=== PATIENT | female | born 1945 | race Caucasian/White ===

== ENCOUNTER → 2017-06-24 | Outpatient (CLI) | payer MEDICARE ==
--- NOTE | 2017-06-24 09:59 | XR ---
EXAMINATION TYPE: XR chest 2V DATE OF EXAM: 06/24/2017 COMPARISON: 07/10/2016 HISTORY: 72-year-old female preoperative evaluation TECHNIQUE: Frontal and lateral views FINDINGS: The cardiomediastinal silhouette, aorta, and pulmonary vasculature are within normal limits. Mild int erstitial prominence has a chronic appearance. Otherwise, lungs And pleural spaces are clear. Bridgin g anterior endplate spondylosis suggestive of DISH. IMPRESSION: Chronic-appearing changes without acute cardiopulmonary process.
== END | disposition home or self-care (01) ==
LOC: RADXRYALE 09:08
PROVIDERS: ATTEND Obstetrics & Gynecology Gynecologic Oncology
DX: C54.1 Malignant neoplasm of endometrium (principal); R91.8 Other nonspecific abnormal finding of lung field
CPT/HCPCS: 71020

== ENCOUNTER → 2019-07-17 | Outpatient (CLI) | payer MEDICARE ==
--- NOTE | 2019-07-17 12:21 | XR ---
EXAMINATION TYPE: XR ankle complete RT DATE OF EXAM: 07/17/2019 COMPARISON: None HISTORY: Pain medially TECHNIQUE: Three-view right ankle FINDINGS: Large plantar and Achilles tendon calcaneal heel spurs are present. Ankle mortise is intact. No acute fractures are evident. Soft tissues appear normal. IMPRESSION: 1. Large plantar calcaneal heel spurs. 2. No acute osseous abnormality.
== END | disposition home or self-care (01) ==
LOC: RADXRYALE 11:13
PROVIDERS: ATTEND Internal Medicine
DX: M77.31 Calcaneal spur, right foot (principal)

== ENCOUNTER 2022-07-30 14:45 | Inpatient (IN) | payer MEDICARE ==
[2022-07-30 16:34] LABS: Basophils % (A) 0 %; Eosinophils # (A) 0.1 k/uL (0-0.7); Eosinophils % (A) 1 %; HCT 38.3 % (34.0-46.0); HGB 13.3 gm/dL (11.4-16.0); Lymphocytes # (A) 0.9 k/uL (1.0-4.8); Lymphocytes % (A) 8 %; MCH 31.5 pg (25.0-35.0); MCHC 34.7 g/dL (31.0-37.0); MCV 90.6 fL (80.0-100.0); Mean Platelet Volume 7.9; Monocytes # (A) 0.6 k/uL (0-1.0); Monocytes % (A) 6 %; Neutrophils # (A) 8.3 k/uL (1.3-7.7); Neutrophils % (A) 82 %; Platelet Count 220 k/uL (150-450); RBC 4.22 m/uL (3.80-5.40); RDW 13.6 % (11.5-15.5); WBC 10.2 k/uL (3.8-10.6)
[2022-07-30 16:45] LABS: Calcium 7.8 mg/dL (8.4-10.2); Total Bilirubin 1.6 mg/dL (0.2-1.3)
[2022-07-30 16:46] LABS: Potassium 5.4 mmol/L (3.5-5.1); Total Protein 6.6 g/dL (6.3-8.2)
[2022-07-30 16:47] LABS: Magnesium 1.9 mg/dL (1.6-2.3)
--- NOTE | 2022-07-30 19:27 | ED ---
General Adult HPI - General Chief complaint: Weakness Stated complaint: Weakness Time Seen by Provider: 07/30/22 14:45 Source: patient, EMS, RN notes reviewed, old records reviewed Mode of arrival: EMS Limitations: no limitations - History of Present Illness Initial comments: This is a 77-year-old female presents emergency Department complaining of right ankle fracture. Patient states she was at [facility] yesterday and was diagnosed with a bimalleolar fracture and then she went home and was unable to get around the apartment and unable take care of self. Patient states family was at a try to help with that was too much burden on them and they were unable to get her up and moved around safely. I spoke with Dr. Suzie Larsen wanted the patient admitted admitted and put to rehab. Patient has no new complaints today. - Related Data Home Medications Medication Instructions Recorded Confirmed Aspirin [Adult Low Dose Aspirin EC] 81 mg PO DAILY 06/15/16 07/30/22 [place]-3 Fatty Acids/Fish Oil [Fish 1 tab PO DAILY 06/15/16 07/30/22 Oil 1,000 mg Softgel] Omeprazole [PriLOSEC] 20 mg PO DAILY 06/15/16 07/30/22 Simvastatin [Zocor] 40 mg PO DAILY 06/15/16 07/30/22 atenoloL [Tenormin] 50 mg PO DAILY 06/15/16 07/30/22 metFORMIN HCL [Glucophage] 1,000 mg PO BID 06/15/16 07/30/22 Alendronate Sodium [Fosamax] 70 mg PO TU 07/30/22 07/30/22 Pioglitazone [Actos] 15 mg PO DAILY 07/30/22 07/30/22 traMADol HCL 50 mg PO Q6H PRN 07/30/22 07/30/22 Allergies Allergy/AdvReac Type Severity Reaction Status Date / Time No Known Allergies Allergy Verified 07/30/22 15:23 Review of Systems ROS Statement: Those systems with pertinent positive or pertinent negative responses have been documented in the HPI. ROS Other: All systems not noted in ROS Statement are negative. General Exam - General Exam Comments Initial Comments: GENERAL: Patient is well-developed and well-nourished. Patient is nontoxic and well-hy drated and is in no acute distress. ENT: Neck is soft and supple. No significant lymphadenopathy is noted. Oropharynx is clear. Moist mucous membranes. EYES: The sclera were anicteric and conjunctiva were pink and moist. Extraocular movements were intact and pupils were equal round and reactive to light. Eyelids were unremarkable. PULMONARY: Unlabored respirations. Good breath sounds bilaterally. No audible rales rhonchi or wheezing was noted. CARDIOVASCULAR: There is a regular rate and rhythm without any murmurs gallops or rubs. ABDOMEN: Soft and nontender with normal bowel sounds. SKIN: Skin is clear with no lesions or rashes and otherwise unremarkable. NEUROLOGIC: Patient is alert and oriented x3. Cranial nerves II through XII are grossly intact. Motor and sensory are also intact. Normal speech, volume and content. Symmetrical smile. MUSCULOSKELETAL: Right ankle is casted toes have good sensation and good cap refill LYMPHATICS: No significant lymphadenopathy is noted PSYCHIATRIC: Normal psychiatric evaluation. Limitations: no limitations Course Vital Signs 07/30/22 07/30/22 14:55 18:29 Pulse Rate 68 71 Respiratory 18 16 Rate Blood Pressure 136/73 138/62 O2 Sat by Pulse 96 97 Oximetry Medical Decision Making - Medical Decision Making Was pt. sent in by a medical professional or institution? @ -Dr. Larsen sent the patient in Did you speak to anyone other than the patient for history? @ -I spoke with the and the daughter to get the full history patient was somewhat confused about the history Did you review nursing and triage notes? @ -I agree with the triage notes and nursing notes Were old charts reviewed? @ -I had old hospital records sent over from [facility] Differential Diagnosis? @ -None EKG interpreted by me (3pts min.)? @ -As above X-rays interpreted by me (1pt min.)? @ -I reviewed x-ray results sent from [facility] CT interpreted by me (1pt min.)? @ -None U/S interpreted by me (1pt. min.)? @ -None What testing was considered but not performed? (CT, X-rays, U/S, labs)? Why? @ -None What meds were considered but not given? Why? @ -None Did you discuss the management of the patient with other professionals? @ -I spoke with [facility] hospitalist Dr. Bland and he agreed to admit the patient Did you reconcile home meds? @ -No Was smoking cessation discussed for >3mins.? @ -No Was critical care preformed (if so, how long)? @ -No Were there social determinants of health that impacted care today? How? (Homelessness, low income, unemployed, alcoholism, drug addiction, transportation, low edu. Level, literacy, decrease access to med. care, custodial, rehab)? @ -No Was there de-escalation of care discussed even if they declined? (Discuss DNR or withdrawal of care, Hospice)? @ -No What co-morbidities impacted this encounter? (DM, HTN, Smoking, COPD, CAD, Cancer, CVA, Hep., AIDS, mental health diagnosis, sleep apnea, morbid obesity)? @ -No Was patient admitted / discharged? @ -Patient will be admitted for bimalleolar fracture with goal of rehabilitation. family states they cannot take care of her at home because there is no way she can get around really help get her up even though there are 2 other people living with her they attempted that all day today were on a successful getting her around a small home Undiagnosed new problem with uncertain prognosis? @ -None Drug Therapy requiring intensive monitoring for toxicity (Heparin, Nitro, Insulin, Cardizem)? @ -None Were any procedures done? @ -Known Diagnosis/symptom? @ -Bimalleolar fracture unable to get around Acute, or Chronic, or Acute on Chronic? @ -Acute Uncomplicated (without systemic symptoms) or Complicated (systemic symptoms)? @ -Uncomplicated Side effects of treatment? @ -None Exacerbation, Progression, or Severe Exacerbation] @ -None Poses a threat to life or bodily function? @ -No - Lab Data Result diagrams: 07/30/22 16:22 07/30/22 16:22 Lab Results 07/30/22 07/30/22 Range/Units 16:22 16:22 WBC 10.2 (3.8-10.6) k/uL RBC 4.22 (3.80-5.40) m/uL Hgb 13.3 (11.4-16.0) gm/dL Hct 38.3 (34.0-46.0) % MCV 90.6 (80.0-100.0) fL MCH 31.5 (25.0-35.0) pg MCHC 34.7 (31.0-37.0) g/dL RDW 13.6 (11.5-15.5) % Plt Count 220 (150-450) k/uL MPV 7.9 Neutrophils % 82 % Lymphocytes % 8 % Monocytes % 6 % Eosinophils % 1 % Basophils % 0 % Neutrophils # 8.3 H (1.3-7.7) k/uL Lymphocytes # 0.9 L (1.0-4.8) k/uL Monocytes # 0.6 (0-1.0) k/uL Eosinophils # 0.1 (0-0.7) k/uL Basophils # 0.0 (0-0.2) k/uL Sodium 136 L (137-145) mmol/L Potassium 5.4 H (3.5-5.1) mmol/L Chloride 103 (98-107) mmol/L Carbon Dioxide 24 (22-30) mmol/L Anion Gap 9 mmol/L BUN 43 H (7-17) mg/dL Creatinine 1.79 H (0.52-1.04) mg/dL Est GFR (CKD-EPI)AfAm 32 (>60 ml/min/1.73 sqM) Est GFR (CKD-EPI)NonAf 27 (>60 ml/min/1.73 sqM) Glucose 159 H (74-99) mg/dL Calcium 7.8 L (8.4-10.2) mg/dL Magnesium 1.9 (1.6-2.3) mg/dL Total Bilirubin 1.6 H (0.2-1.3) mg/dL AST 125 H (14-36) U/L ALT 47 H (4-34) U/L Alkaline Phosphatase 64 (38-126) U/L Total Protein 6.6 (6.3-8.2) g/dL Albumin 4.0 (3.5-5.0) g/dL Disposition Clinical Impression: Bimalleolar ankle fracture, Encounter for rehabilitation Disposition: ADMITTED IP TO THIS HOSP Is patient prescribed a controlled substance at d/c from ED?: No Referrals: Juliana Larsen MD [Primary Care Provider] - 1-2 days Time of Disposition: 19:31
[2022-07-30] MEDS ORDERED: SODIUM CHLORIDE 0.9% 1,000 ML IV ONE (19:31)
[2022-07-31 07:21] LABS: Glucose,Whole Blood 161 mg/dL (70-110)
[2022-07-31 11:21] LABS: Glucose,Whole Blood 167 mg/dL (70-110)
[2022-07-31] MEDS ORDERED: traMADol 50 MG TAB PO PRN (11:23)
[2022-07-31] MEDS ORDERED: CALCIUM CARBONATE 500 MG CHEWABLE PO PRN (11:25)
[2022-07-31] MEDS ORDERED: NON FORMULARY DRUG (Omega-3 Fatty Acids/Fish Oil [Fish Oil 1,000 Mg Softgel] 1 EACH Capsul PO SCH (11:30)
[2022-07-31] MEDS ORDERED: NON FORMULARY DRUG (Alendronate Sodium [Fosamax] 70 MG Tablet) PO SCH (11:30)
--- NOTE | 2022-07-31 11:32 | P.CNOR ---
History of Present Illness - HPI Consult date: 07/31/22 History of present illness: This is a 77-year-old female with a past medical history significant for diabetes mellitus, GERD, hyperlipidemia, hypertension and osteoarthritis. Patient is admitted for placement due to a right ankle fracture. Orthopedics is consulted for management of right ankle fracture. Patient states that she does not know how she injured her right ankle. Patient states that the injury happened a few days ago. Patient states that she was treated in the emergency room on 07/30/2022, and she does not think the ankle had to be reduced. Patient is currently in a splint. Patient denies any fever/chills, numbness, weakness, tingling, abdominal pain, shortness of breath or chest pain. Review of Systems On exam the right lower extremity has a splint that is clean, dry and intact. Patient is able to wiggle the toes of the right foot. Capillary refill is normal at less than 2 seconds. Sensation intact. Neurovascular status and circulatory status are intact. Past Medical History Past Medical History: Diabetes Mellitus, GERD/Reflux, Hyperlipidemia, Hypertension, Osteoarthritis (OA) History of Any Multi-Drug Resistant Organisms: None Reported Past Surgical History: Cholecystectomy, Heart Catheterization, Orthopedic Surgery Additional Past Surgical History / Comment(s): L knee arthroscopy Past Anesthesia/Blood Transfusion Reactions: Postoperative Nausea & Vomiting (PONV) Past Psychological History: No Psychological Hx Reported Smoking Status: Never smoker Past Drug Use History: None Reported - Past Family History Mother Family Medical History: Myocardial Infarction ([place]) Medications and Allergies Home Medications Medication Instructions Recorded Confirmed Type Aspirin [Adult Low Dose Aspirin EC] 81 mg PO DAILY 06/15/16 07/30/22 History [place]-3 Fatty Acids/Fish Oil [Fish 1 tab PO DAILY 06/15/16 07/30/22 History Oil 1,000 mg Softgel] Omeprazole [PriLOSEC] 20 mg PO DAILY 06/15/16 07/30/22 History Simvastatin [Zocor] 40 mg PO DAILY 06/15/16 07/30/22 History atenoloL [Tenormin] 50 mg PO DAILY 06/15/16 07/30/22 History metFORMIN HCL [Glucophage] 1,000 mg PO BID 06/15/16 07/30/22 History Alendronate Sodium [Fosamax] 70 mg PO TU 07/30/22 07/30/22 History Pioglitazone [Actos] 15 mg PO DAILY 07/30/22 07/30/22 History traMADol HCL 50 mg PO Q6H PRN 07/30/22 07/30/22 History Allergies Allergy/AdvReac Type Severity Reaction Status Date / Time No Known Allergies Allergy Verified 07/30/22 15:23 Results - Labs Labs: Abnormal Lab Results - Last 24 Hours (Table) 07/30/22 07/30/22 07/31/22 Range/Units 16:22 16:22 07:20 Neutrophils # 8.3 H (1.3-7.7) k/uL Lymphocytes # 0.9 L (1.0-4.8) k/uL Sodium 136 L (137-145) mmol/L Potassium 5.4 H (3.5-5.1) mmol/L BUN 43 H (7-17) mg/dL Creatinine 1.79 H (0.52-1.04) mg/dL Glucose 159 H (74-99) mg/dL POC Glucose (mg/dL) 161 H (70-110) mg/dL Calcium 7.8 L (8.4-10.2) mg/dL Total Bilirubin 1.6 H (0.2-1.3) mg/dL AST 125 H (14-36) U/L ALT 47 H (4-34) U/L 07/31/22 Range/Units 11:20 Neutrophils # (1.3-7.7) k/uL Lymphocytes # (1.0-4.8) k/uL Sodium (137-145) mmol/L Potassium (3.5-5.1) mmol/L BUN (7-17) mg/dL Creatinine (0.52-1.04) mg/dL Glucose (74-99) mg/dL POC Glucose (mg/dL) 167 H (70-110) mg/dL Calcium (8.4-10.2) mg/dL Total Bilirubin (0.2-1.3) mg/dL AST (14-36) U/L ALT (4-34) U/L H & H 07/30/22 Range/Units 16:22 Hgb 13.3 (11.4-16.0) gm/dL Hct 38.3 (34.0-46.0) % Result Diagrams: 07/30/22 16:22 07/30/22 16:22 Assessment and Plan (1) Ankle fracture, right Current Visit: Yes Status: Acute Code(s): S82.891A - OTH FRACTURE OF RIGHT LOWER LEG, INIT FOR CLOS FX SNOMED Code(s): 62057865 (2) Encounter for rehabilitation Current Visit: Yes Status: Acute Code(s): Z51.89 - ENCOUNTER FOR OTHER SPECIFIED AFTERCARE SNOMED Code(s): 559406429 Plan: 1. Maintain splint. Patient is to remain nonweightbearing to the right lower extremity. 2. X-rays of the right ankle are pending. Further recommendations pending x- ray results.
[2022-07-31] MEDS: ATORVASTATIN 20 MG TAB PO SCH (12:03)
[2022-07-31] MEDS: PANTOPRAZOLE 40 MG TABLET PO SCH (12:03)
[2022-07-31] MEDS: atenoloL 50 MG TAB PO SCH (12:03)
[2022-07-31 12:22] LABS: ALT 52 U/L (4-34); AST 96 U/L (14-36); African American GFR (CKD) 64 (>60 ml/min/1.73 sqM); Albumin 3.8 g/dL (3.5-5.0); Albumin/Globulin Ratio 1.5; Alkaline Phosphatase 85 U/L (38-126); Anion Gap 9 mmol/L; Blood Urea Nitrogen 37 mg/dL (7-17); Calcium 8.1 mg/dL (8.4-10.2); Carbon Dioxide 27 mmol/L (22-30); Chloride 103 mmol/L (98-107); Globulin 2.5 g/dL; Glucose 164 mg/dL (74-99); Non-African American GFR(CKD) 56 (>60 ml/min/1.73 sqM); Potassium 3.6 mmol/L (3.5-5.1); Sodium 139 mmol/L (137-145); Total Bilirubin 1.1 mg/dL (0.2-1.3); Total Protein 6.3 g/dL (6.3-8.2)
[2022-07-31] MEDS ORDERED: ACETAMINOPHEN TAB 325 MG TAB PO PRN (12:50)
[2022-07-31] MEDS: ONDANSETRON 4 MG/2 ML VIAL IVP PRN (13:15)
[2022-07-31] MEDS: PIOGLITAZONE 15 MG TAB PO SCH (13:15)
--- NOTE | 2022-07-31 14:23 | XR ---
EXAMINATION TYPE: XR ankle limited RT DATE OF EXAM: 07/31/2022 CLINICAL HISTORY: Pain. Fracture. TECHNIQUE: Frontal and lateral images of the right ankle are obtained. COMPARISON: Prior right ankle x-ray July 17, 2019. FINDINGS: Osseous structures are demineralized which is noted to lower radiographic sensitivity. Over lying splint or cast material noted also making evaluation slightly suboptimal. There is acute oblique intra-articular displaced fracture of the lateral malleolus. There is acute co mminuted slightly displaced fracture through the medial malleolus. There is mortise disruption with a bnormal medial widening noted. No significant soft tissue swelling. Large calcaneal spurs redemonstra jacob. Suboptimal evaluation of the posterior calcaneus due to blanket or clothing overlap. IMPRESSION: As above. Bimalleolar fracture of indeterminant age but suspected acute or subacute with mortise disruption as noted above.
--- NOTE | 2022-07-31 14:51 | HP ---
HISTORY AND PHYSICAL CHIEF COMPLAINT: Weakness. HISTORY OF PRESENT ILLNESS: This is a 77-year-old woman with a past medical history of right ankle fracture. The patient was at [facility] and the patient went home, but the patient was unable to get on the apartment. The patient complains of severe pain. The patient came to [facility] and was admitted for further evaluation and treatment. There is no history of any fever, rigors or chills. PAST MEDICAL HISTORY: Reviewed, include diabetes mellitus, GERD, hypertension, hyperlipidemia, rest of the history and rest of the chart is also reviewed. HOME MEDICATIONS: Reviewed include Ultram. Doses and rest of medications reviewed. ALLERGIES: None. FAMILY HISTORY: Myocardial infarction. SOCIAL HISTORY: No history of smoking or alcohol intake. REVIEW OF SYSTEMS: Fourteen-point review of systems negative except as mentioned earlier. PHYSICAL EXAMINATION: VITAL SIGNS: Pulse 77, blood pressure N, respirations 18. HEENT: Conjunctivae normal. NECK: No jugular venous distention. CARDIOVASCULAR: S1 and S2. RESPIRATORY: Breath sounds diminished at the bases. ABDOMEN: Soft, nontender. LEGS: Right ankle trimalleolar fracture. LABORATORY DATA: Reviewed. ASSESSMENT: 1. Acute right ankle trimalleolar fracture with gait dysfunction. 2. Acute renal failure. 3. Hyperkalemia. 4. Gait dysfunction. 5. Diabetes mellitus, type 2. 6. Hypertension. 7. Hyperlipidemia. 8. Multiple medical issues. RECOMMENDATIONS: This is a 77-year-old woman, who presented with multiple complex medical issues, we will monitor the patient closely. Resume the home medications. Otherwise, we will check a TSH and an orthopedic evaluation. PT/OT evaluation. DVT prophylaxis. Possible ECF rehab. Guarded prognosis because of multiple complex medical issues and further recommendations to follow. MMODL / IJN: [id number] / MTDD
[2022-07-31] MEDS: NYSTATIN 100,000 UNIT/GM POWD 15 GM TOPICAL SCH ×2 (15:46→23:23)
[2022-07-31 17:16] LABS: Glucose,Whole Blood 211 mg/dL (70-110)
[2022-07-31 20:12] LABS: Glucose,Whole Blood 180 mg/dL (70-110)
[2022-08-01 07:56] LABS: Glucose,Whole Blood 156 mg/dL (70-110)
[2022-08-01] MEDS: NYSTATIN 100,000 UNIT/GM POWD 15 GM TOPICAL SCH ×3 (08:58→20:35)
[2022-08-01] MEDS: atenoloL 50 MG TAB PO SCH (08:58)
[2022-08-01] MEDS: PIOGLITAZONE 15 MG TAB PO SCH (08:58)
[2022-08-01] MEDS: PANTOPRAZOLE 40 MG TABLET PO SCH (08:58)
[2022-08-01] MEDS: ATORVASTATIN 20 MG TAB PO SCH (08:58)
[2022-08-01] MEDS: ASPIRIN 81 MG PO SCH (08:58)
--- NOTE | 2022-08-01 12:44 | P.CNOR ---
History of Present Illness - [facility] Consult date: 08/01/22 Requesting physician: Lloyd Duron Consult reason: fracture (Displaced right bimalleolar fracture) History of present illness: This is a 77-year-old female with a past medical history significant for diabetes mellitus, GERD, hyperlipidemia, hypertension and osteoarthritis. Patient is admitted for placement due to a right ankle fracture. Orthopedics was consulted for management of right ankle fracture. After evaluation, Bonny Duron recommended me to continued care of the patient. Patient states that she does not know how she injured her right ankle. Patient states that the injury happened a few days ago. Patient states that she was treated in the emergency room on 07/30/2022, and she does not think the ankle had to be reduced. Patient is currently in a splint. Patient denies any fever/chills, numbness, weakness, tingling, abdominal pain, shortness of breath or chest pain. Past Medical History Past Medical History: Diabetes Mellitus, GERD/Reflux, Hyperlipidemia, Hypertension, Osteoarthritis (OA) History of Any Multi-Drug Resistant Organisms: None Reported Past Surgical History: Cholecystectomy, Heart Catheterization, Orthopedic Surgery Additional Past Surgical History / Comment(s): L knee arthroscopy Past Anesthesia/Blood Transfusion Reactions: Postoperative Nausea & Vomiting (PONV) Past Psychological History: No Psychological Hx Reported Smoking Status: Never smoker Past Drug Use History: None Reported - Past Family History Mother Family Medical History: Myocardial Infarction ([place]) Medications and Allergies Home Medications Medication Instructions Recorded Confirmed Type Aspirin [Adult Low Dose Aspirin EC] 81 mg PO DAILY 06/15/16 07/30/22 History [place]-3 Fatty Acids/Fish Oil [Fish 1 tab PO DAILY 06/15/16 07/30/22 History Oil 1,000 mg Softgel] Omeprazole [PriLOSEC] 20 mg PO DAILY 06/15/16 07/30/22 History Simvastatin [Zocor] 40 mg PO DAILY 06/15/16 07/30/22 History atenoloL [Tenormin] 50 mg PO DAILY 06/15/16 07/30/22 History metFORMIN HCL [Glucophage] 1,000 mg PO BID 06/15/16 07/30/22 History Alendronate Sodium [Fosamax] 70 mg PO TU 07/30/22 07/30/22 History Pioglitazone [Actos] 15 mg PO DAILY 07/30/22 07/30/22 History traMADol HCL 50 mg PO Q6H PRN 07/30/22 07/30/22 History Allergies Allergy/AdvReac Type Severity Reaction Status Date / Time No Known Allergies Allergy Verified 07/30/22 15:23 Physical Examination Osteopathic Statement: *. No significant issues noted on an osteopathic s tructural exam other than those noted in the History and Physical/Consult. - Ankle & Foot right Ankle appearance: swelling, other (Patient currently in below-knee splint) Foot appearance: normal Tenderness with palpation: medial ankle, lateral ankle Ankle pain worse with weight bearing: Yes Ankle pain relieved by non-weight bearing: Yes Ankle alignment: normal Results - Labs Labs: Abnormal Lab Results - Last 24 Hours (Table) 07/31/22 07/31/22 08/01/22 Range/Units 17:14 20:10 07:54 POC Glucose (mg/dL) 211 H 180 H 156 H (70-110) mg/dL H & H 07/30/22 Range/Units 16:22 Hgb 13.3 (11.4-16.0) gm/dL Hct 38.3 (34.0-46.0) % Result Diagrams: 07/30/22 16:22 07/31/22 11:49 Assessment and Plan (1) Bimalleolar ankle fracture Current Visit: Yes Status: Acute Code(s): S82.843A - DISPLACED BIMALLEOLAR FRACTURE OF UNSP LOWER LEG, INIT SNOMED Code(s): 217519926 Plan: Patient is to undergo open reduction with internal fixation of a right bimalleolar ankle fracture scheduled for 08/01/2022. Anticipated discharge to rehab facility postoperatively
[2022-08-01 12:50] LABS: Glucose,Whole Blood 143 mg/dL (70-110)
[2022-08-01] MEDS ORDERED: LACTATED RINGERS 1,000 ML IV ONE (13:40)
[2022-08-01] MEDS ORDERED: MIDAZOLAM 2 MG/2 ML VIAL IVP ONE (14:00)
[2022-08-01] MEDS: ONDANSETRON 4 MG/2 ML VIAL IVP PRN (14:01)
--- NOTE | 2022-08-01 14:53 | P.ANPRN ---
Procedure Note - Anesthesia - Nerve Block Performed Right Adductor Canal Time Out Performed: Yes (13:59) Date of Procedure: 08/01/22 Procedure Start Time: :59 Procedure Stop Time: 14:04 Location of Patient: PreOp Indication: Acute Post-Operative Pain, Requested by Surgeon (Dr Barber) Sedation Type: Sedate with meaningful contact maintained Preparation: Sterile Prep Position: Supine Catheter: None Needle Types: Pajunk Needle Gauge: 21 Ultrasound used to visualize needle placement: Yes Ultrasound used to observe medication spread: Yes Injectate: 0.5% Ropivacaine (see comment for volume) (15cc +5cc PF Normal saline) Blood Aspirated: No Pain Paresthesia on Injection Noted: No Resistance on Injection: Normal Image Stored and Saved: Yes Events: Uneventful and Well Tolerated
--- NOTE | 2022-08-01 14:54 | P.ANPRN ---
Procedure Note - Anesthesia - Nerve Block Performed Right Popliteal Time Out Performed: Yes Date of Procedure: 08/01/22 Procedure Start Time: 14:05 Procedure Stop Time: 14:11 Location of Patient: PreOp Indication: Acute Post-Operative Pain, Requested by Surgeon (Dr Barber) Sedation Type: Sedate with meaningful contact maintained Preparation: Sterile Prep Position: Left Lateral Catheter: None Needle Types: Pajunk Needle Gauge: 21 Ultrasound used to visualize needle placement: Yes Ultrasound used to observe medication spread: Yes Injectate: 0.5% Ropivacaine (see comment for volume) (15cc +5cc PF Normal saline) Blood Aspirated: No Pain Paresthesia on Injection Noted: No Resistance on Injection: Normal Image Stored and Saved: Yes Events: Uneventful and Well Tolerated
[2022-08-01] MEDS ORDERED: PROPOFOL 10 MG/ML 20 ML VIAL IV ONE (15:48)
[2022-08-01] MEDS ORDERED: fentaNYL (PF) 50 MCG/ML 2 ML AMP ONE (15:48)
[2022-08-01] MEDS ORDERED: LIDOCAINE 2% INJ 20 MG/ML (2 ML VIAL) ONE (15:48)
[2022-08-01] MEDS ORDERED: ROPIVACAINE 5 MG/ML 30 ML VIAL ONE (15:48)
[2022-08-01] MEDS ORDERED: HYDROmorphone (PF) 1 MG/ML ONE (15:48)
[2022-08-01] MEDS ORDERED: SODIUM CHLORIDE 0.9% (PF) 10 ML VIAL ONE (15:48)
[2022-08-01] MEDS ORDERED: WATER FOR INJECTION, STERILE 10 ML VIAL IV ONE (15:48)
[2022-08-01] MEDS ORDERED: ePHEDrine 50 MG/ML 1 ML VIAL ONE (15:48)
[2022-08-01] MEDS ORDERED: SUCCINYLCHOLINE CHLORIDE 200 MG/10 ML VIAL IV ONE (15:48)
[2022-08-01] MEDS ORDERED: SODIUM CHLORIDE 0.9% 50 ML with ceFAZolin 2 GM IV ONE ×2 (15:54)
[2022-08-01] MEDS ORDERED: HYDROmorphone 0.5 MG/0.5 ML SYRINGE IVP PRN ×3 (17:17)
[2022-08-01] MEDS ORDERED: ONDANSETRON 4 MG/2 ML VIAL IVP PRN (17:17)
--- NOTE | 2022-08-01 17:34 | P.OP ---
Date of Procedure: 08/01/22 Preoperative Diagnosis: Displaced right bimalleolar ankle fracture Postoperative Diagnosis: Same Procedure(s) Performed: Open reduction with internal fixation right bimalleolar ankle fracture Implants: Robert precontoured lateral malleolar plate and screws Robert 3.5 mm cannulated screws 2 Anesthesia: GETA Surgeon: Jerod Barber Estimated Blood Loss (ml): 10 Pathology: none sent Condition: stable Disposition: PACU Description of Procedure: Prior to the patient being brought to the operative room, anesthesia administered a nerve block on the right lower extremity. The patient was then brought into the operative room and placed on table supine position. Timeout was taken to confirm correct patient identifiers, correct lateral a surgery, and correct procedure. When all staff in the room were in agreement with the timeout, the patient was induced and placed under general anesthesia. A well- padded tourniquet was placed on the right thigh and a wedge underneath the right hip to internally rotate the right leg. The right leg was then prepped and draped usual manner. The right leg was exsanguinated and the tourniquet inflated to 250 mmHg. Attention was directed over the lateral ankle where a linear incision was made over the lateral malleolus. The incision was deepened down to the saphenous layer careful to identify, avoid, and retract any neurovascular structures and cauterize any bleeding vessels. Dissection was carried directly down to the bone with hematoma was encountered at the fracture site. The hematoma was removed and the fracture exposed. A Yusuf was used to remove any interposing soft tissue at the fracture site and remove any hematoma. Reduction forceps were then used to rotate and bring the fibula back out to length. Once the fracture was clamped in place, fluoroscopy was used to check the positioning. Once positioning was that was actively, [place] precontoured lateral malleolar plate was positioned and adjusted until it was correct and the fluoroscopy. It was then temporarily fixated. 3.5 locking screws were placed in the proximal aspect of the plate. 3.5 locking and nonlocking screws were placed distally. Distal screws were done under direct fluoroscopic visualization so as not to drill into the joint itself. The periphery fixation was removed the third locking screws placed proximally. Final fluoroscopic imaging showed anatomic alignment of the fracture with maintained length. The wound is irrigated thoroughly with antibiotic saline. Deep closure was done with 2-0 Vicryl. Subcu closure was done with 3-0 Monocryl. Skin closure done with kaylie. Then attention was directed over the medial malleolus where a linear incision was made over the distal aspect. It was deepened down to the subcutaneous tissue careful to identify, avoid, and retract any neurovascular structures and cauterize any bleeding vessels. Dissection was then carried down to the fracture line and hematoma. The hematoma was evacuated and a Yusuf used to remove any soft tissue or hematoma between the fracture fragments. The wound is thoroughly irrigated with anatomic saline. Bone reduction forceps were used to reduce fracture into place. Fluoroscopy was used to confirm the position of the fracture. Once the fracture position was satisfactory, guidewires for 4.0 mm cannulated screws were inserted at the tip of the medial malleolus and angled across the fracture line and into the tibia. AP and lateral views show that the wires were and correct position. Then the screws were placed over the wires and advanced until the heads engage medial malleolus and the fracture was compressed. The wires were removed and fluoroscopy used to confirm the position of the screws. Also the alignment of the ankle joint was checked on AP and mortise views. The ankle joint was opened symmetrical with no widening and fibula length was restored The medial wound is thoroughly irrigated with anatomic saline. Subcu closure was done with 3-0 Monocryl. Skin closure done with kaylie. Arthrex jumpstart dressings were placed over both incisions and then a bulky dry dressing applied to the right ankle. The tourniquet was released and capillary refill return to all digits on the right foot. Patient was then placed a well-padded, well molded plaster posterior mold/sugar tong splint. Ankle was held in neutral position until the splint was dried. Then anesthesia was reversed and the patient was taken recovery with vital signs stable.
[2022-08-01 17:39] LABS: Glucose,Whole Blood 137 mg/dL (70-110)
--- NOTE | 2022-08-01 17:41 | XR ---
EXAMINATION TYPE: XR ankle limited RT DATE OF EXAM: 08/01/2022 COMPARISON: 07/17/2019 HISTORY: Fracture TECHNIQUE: 2 view FINDINGS: 2 fluoroscopic images were obtained that show plate with screws fixing the distal fibula. There are 2 screws fixing the medial malleolus. There are lateral skin kaylie. There was 45 seconds of fluorosc opy time recorded. 56 seconds of total time.
[2022-08-01] MEDS ORDERED: HYDROmorphone 0.5 MG/0.5 ML SYRINGE IVP ONE (18:00)
--- NOTE | 2022-08-01 18:10 | FL ---
EXAMINATION TYPE: FL guidance operating room DATE OF EXAM: 08/01/2022 FLUOROSCOPY Fluoroscopy time of 55.9 seconds was used during right ankle ORIF. 3 image/s document/s the bowen cooper
[2022-08-01 21:19] LABS: Glucose,Whole Blood 185 mg/dL (70-110)
--- NOTE | 2022-08-02 04:23 | P.PN ---
Subjective Progress Note Date: 08/01/22 This is a 77-year-old female who was recently seen at [facility] and sent home noted to have a right bimalleolar fracture. Orthopedics consulted and following and Dr. Jerod Barber podiatry consulted for surgical intervention. Patient having increased pain and inability to ambulate sent back here for further evaluation. He is scheduled for surgery this afternoon. Patient currently with a splint to the right lower extremity in Santiago wrap's and patient is currently nothing by mouth. Patient denies chest pain or shortness of breath and no reports of nausea or vomiting. Patient reports she is hungry and will resume diet after surgery. Patient is agreeable to surgery and will await surgical report. Recommend PT/OT therapy and plans for ECF for continued strength and mobility postsurgery. Review of systems: Constitutional: No reports of fatigue, fever, or chills Cardiovascular: No reports of chest pain or palpitations Respiratory: No reports of shortness of breath or cough GI: no reports of nausea, no reports of of vomiting, or diarrhea : No reports of dysuria or retention Neurovascular: reports of generalized weakness, and continued right ankle pain All medications have been reviewed Active Medications Acetaminophen (Acetaminophen Tab 325 Mg Tab) 650 mg PO Q6HR PRN PRN Reason: Fever and/ or Pain Aspirin (Aspirin 81 Mg) 81 mg PO DAILY [facility] Last Admin: 08/01/22 08:58 Dose: 81 mg Atenolol (Atenolol 50 Mg Tab) 50 mg PO DAILY [facility] Last Admin: 08/01/22 08:58 Dose: 50 mg Atorvastatin Calcium (Atorvastatin 20 Mg Tab) 20 mg PO DAILY [facility] Last Admin: 08/01/22 08:58 Dose: 20 mg Calcium Carbonate/Glycine (Calcium Carbonate 500 Mg Chewable) 500 mg PO TID PRN PRN Reason: Heartburn Last Admin: 07/31/22 12:03 Dose: 500 mg Hydromorphone HCl (Hydromorphone 0.5 Mg/0.5 Ml Syringe) 0.25 mg IVP Q3HR PRN PRN Reason: Pain Scale 4 to 6 Hydromorphone HCl (Hydromorphone 0.5 Mg/0.5 Ml Syringe) 0.5 mg IVP Q3HR PRN PRN Reason: Pain Scale 7 to 10 Hydromorphone HCl (Hydromorphone 0.5 Mg/0.5 Ml Syringe) 0.125 mg IVP Q3HR PRN PRN Reason: Pain Scale 1 to 3 Nystatin (Nystatin 100,000 Unit/Gm Powd 15 Gm) 1 applic TOPICAL TID [facility]; Protocol Last Admin: 08/01/22 20:35 Dose: 1 applic Ondansetron HCl (Ondansetron 4 Mg/2 Ml Vial) 4 mg IVP Q6HR PRN PRN Reason: Nausea And Vomiting Last Admin: 08/01/22 14:01 Dose: 4 mg Pantoprazole Sodium (Pantoprazole 40 Mg Tablet) 40 mg PO AC-BRKFST [facility] Last Admin: 08/01/22 08:58 Dose: 40 mg Pioglitazone HCl (Pioglitazone 15 Mg Tab) 15 mg PO DAILY [facility] Last Admin: 08/01/22 08:58 Dose: 15 mg Tramadol HCl (Tramadol 50 Mg Tab) 50 mg PO BID PRN PRN Reason: Pain Last Admin: 08/01/22 20:35 Dose: 50 mg PHYSICAL EXAMINATION: GENERAL: The patient is alert and oriented x4, Well developed, well nourished. Obese. HEENT: Pupils are round and equally reacting to light. EOMI. no scleral icterus. No conjunctival pallor. Normocephalic, atraumatic. No pharyngeal erythema. No thyromegaly. CARDIOVASCULAR: S1 and S2 muffled PULMONARY: diminished breath sounds bilaterally with no wheezing or rhonchi noted. ABDOMEN: soft. Nontender on exam. obese. non-distended, normoactive bowel sounds. No palpable organomegaly. MUSCULOSKELETAL: No joint swelling or deformity. EXTREMITIES: No cyanosis, clubbing, or pedal edema. Right lower extremity currently Santiago wrapped and splinted NEUROLOGICAL: Gross neurological examination did not reveal any focal deficits. Diffuse weakness SKIN: No rashes. Assessment: Acute right ankle trimalleolar fracture with gait dysfunction Acute renal failure Hyperkalemia gait dysfunction diabetes mellitus, type II Hypertension Hyperlipidemia GI prophylaxis DVT prophylaxis Full code Plan: Recommend to continue with current medications and management with orthopedic consulted. Dr. Jerod Barber podiatry consulted for surgical intervention bimalleolar fracture with plans for surgery this afternoon. Patient is nothing by mouth and recommend resuming diet and continued Accu-Cheks postsurgery. Continue with pain management and recommend PT/OT therapy daily. Case management is following as well working on discharge planning is plan is for ECF for continued strength and mobility. Will await surgical report. Will follow- up with repeat labs in continue to monitor closely. Will require insurance authorization which will be submitted in the a.m. Due to multiple complex medical issues, prognosis is guarded. The impression and plan of care has been dictated by Beth Kim, nurse practitioner as directed. Dr. Edgar MD I have performed a history and examination and MDM of this patient, discussed the same with the dictator, and agree with the dictator's assessment and plan as written ,documented as a scribe. Based on total visit time, I have performed more than 50% of the visit. Any additional findings or plans will be noted. Objective - Vital Signs Vital signs: Vital Signs Temp 97 F L 08/01/22 13:32 Pulse 68 08/01/22 14:12 Resp 20 08/01/22 14:12 BP 166/67 08/01/22 14:12 Pulse Ox 94 L 08/01/22 14:12 FiO2 Intake & Output 07/31/22 08/01/22 08/01/22 18:59 06:59 18:59 Output Total 500 400 Balance -500 -400 Output: Urine 500 400 Other: Voiding Method External Catheter External Catheter # Bowel Movements 1 - Labs CBC & Chem 7: 07/30/22 16:22 07/31/22 11:49 Labs: Abnormal Lab Results - Last 24 Hours (Table) 07/31/22 07/31/22 08/01/22 Range/Units 17:14 20:10 07:54 POC Glucose (mg/dL) 211 H 180 H 156 H (70-110) mg/dL 08/01/22 Range/Units 12:48 POC Glucose (mg/dL) 143 H (70-110) mg/dL
[2022-08-02 07:06] LABS: Glucose,Whole Blood 142 mg/dL (70-110)
[2022-08-02] MEDS: PANTOPRAZOLE 40 MG TABLET PO SCH (08:14)
[2022-08-02] MEDS: atenoloL 50 MG TAB PO SCH (08:14)
[2022-08-02] MEDS: PIOGLITAZONE 15 MG TAB PO SCH (08:14)
[2022-08-02] MEDS: NYSTATIN 100,000 UNIT/GM POWD 15 GM TOPICAL SCH ×3 (08:14→20:51)
[2022-08-02] MEDS: ASPIRIN 81 MG PO SCH (08:14)
[2022-08-02] MEDS: ATORVASTATIN 20 MG TAB PO SCH (08:14)
[2022-08-02 09:39] LABS: Basophils # (A) 0.02 X 10*3/uL (0.00-0.10); Basophils % (A) 0.2 %; Eosinophils # (A) 0.21 X 10*3/uL (0.04-0.35); HCT 35.2 % (37.2-46.3); HGB 11.6 g/dL (12.0-15.0); Immature Grans, Automated 0.8 %; Lymphocytes # (A) 1.29 X 10*3/uL (0.90-5.00); Lymphocytes % (A) 12.6 %; MCH 29.9 pg (27.0-32.0); MCV 90.7 fL (80.0-97.0); Mean Platelet Volume 9.8 fL (9.5-12.2); Monocytes # (A) 0.93 X 10*3/uL (0.20-1.00); Monocytes % (A) 9.1 %; NRBC Per 100 WBC 0 /100 WBCS (0.0-0.0); Neutrophils # (A) 7.72 X 10*3/uL (1.80-7.70); Neutrophils % (A) 75.3 %; Platelet Count 225 X 10*3/uL (140-440); RBC 3.88 X 10*6/uL (4.10-5.20); WBC 10.25 X 10*3/uL (4.50-10.00)
[2022-08-02 10:03] LABS: African American GFR (CKD) 83.6 (60.0-200.0); Anion Gap 12.3 mmol/L (10.00-18.00); BUN/Creat Ratio 35.25 Ratio (12.00-20.00); Blood Urea Nitrogen 28.2 mg/dL (9.0-27.0); Calcium 7.9 mg/dL (8.7-10.3); Carbon Dioxide 24.7 mmol/L (20.0-27.5); Non-African American GFR(CKD) 72.1 (60.0-200.0); Potassium 3.8 mmol/L (3.5-5.5)
[2022-08-02 12:26] LABS: Glucose,Whole Blood 140 mg/dL (70-110)
[2022-08-02] MEDS ORDERED: DEXTROSE 50% SYRINGE 50 ML IVP PRN ×2 (13:21)
--- NOTE | 2022-08-02 15:48 | P.PN ---
Subjective Progress Note Date: 08/02/22 This is a 77-year-old female who was recently seen at [facility] [place] and sent home noted to have a right bimalleolar fracture. Orthopedics consulted and following and Dr. Jerod Barber podiatry consulted for surgical intervention. Patient having increased pain and inability to ambulate sent back here for further evaluation. He is scheduled for surgery this afternoon. Patient currently with a splint to the right lower extremity in Santiago wrap's and patient is currently nothing by mouth. Patient denies chest pain or shortness of breath and no reports of nausea or vomiting. Patient reports she is hungry and will resume diet after surgery. Patient is agreeable to surgery and will await surgical report. Recommend PT/OT therapy and plans for ECF for continued strength and mobility postsurgery. 08/02/2022 Patient is seen in follow-up this morning currently sitting up in the chair and is status post open reduction with internal fixation of the right bimalleolar ankle fracture. Patient does have Santiago wrapping and splint applied with some bruising noted to the toes although able to move them and positive cap refill of less than 3. Patient reports some pain of the right lower extremity and does have it dependent and encourage the patient to elevate while at rest. Physical therapy to evaluate the patient with case management following and plan is for discharge to ECF once cleared by orthopedics and insurance authorization is obtained. Patient was maintained on clear liquid diet after surgery and will resume consistent carb diet and recommend Accu-Cheks before meals and at bedtime and continue to monitor blood sugars closely. Continue with pain management and DVT prophylaxis. Patient is currently afebrile denies chest pain or shortness of breath. Patient denies nausea or vomiting and tolerating diet. Review of systems: Constitutional: No reports of fatigue, fever, or chills Cardiovascular: No reports of chest pain or palpitations Respiratory: No reports of shortness of breath or cough GI: no reports of nausea, no reports of of vomiting, or diarrhea : No reports of dysuria or retention Neurovascular: reports of generalized weakness, and continued right ankle pain All medications have been reviewed Active Medications Acetaminophen (Acetaminophen Tab 325 Mg Tab) 650 mg PO Q6HR PRN PRN Reason: Fever and/ or Pain Aspirin (Aspirin 81 Mg) 81 mg PO DAILY [facility] Last Admin: 08/02/22 08:14 Dose: 81 mg Atenolol (Atenolol 50 Mg Tab) 50 mg PO DAILY [facility] Last Admin: 08/02/22 08:14 Dose: 50 mg Atorvastatin Calcium (Atorvastatin 20 Mg Tab) 20 mg PO DAILY [facility] Last Admin: 08/02/22 08:14 Dose: 20 mg Calcium Carbonate/Glycine (Calcium Carbonate 500 Mg Chewable) 500 mg PO TID PRN PRN Reason: Heartburn Last Admin: 07/31/22 12:03 Dose: 500 mg Dextrose/Water (Dextrose 50% Syringe 50 Ml) 25 ml IVP PER PROTOCOL PRN; Protocol PRN Reason: Hypoglycemia Dextrose/Water (Dextrose 50% Syringe 50 Ml) 50 ml IVP PER PROTOCOL PRN; Protocol PRN Reason: Hypoglycemia Hydromorphone HCl (Hydromorphone 0.5 Mg/0.5 Ml Syringe) 0.25 mg IVP Q3HR PRN PRN Reason: Pain Scale 4 to 6 Hydromorphone HCl (Hydromorphone 0.5 Mg/0.5 Ml Syringe) 0.5 mg IVP Q3HR PRN PRN Reason: Pain Scale 7 to 10 Hydromorphone HCl (Hydromorphone 0.5 Mg/0.5 Ml Syringe) 0.125 mg IVP Q3HR PRN PRN Reason: Pain Scale 1 to 3 Insulin Aspart (Insulin Aspart (Novolog) 100 Unit/Ml Vial) 0 unit SQ [facility]; Protocol Nystatin (Nystatin 100,000 Unit/Gm Powd 15 Gm) 1 applic TOPICAL TID [facility]; Protocol Last Admin: 08/02/22 08:14 Dose: 1 applic Ondansetron HCl (Ondansetron 4 Mg/2 Ml Vial) 4 mg IVP Q6HR PRN PRN Reason: Nausea And Vomiting Last Admin: 08/01/22 14:01 Dose: 4 mg Pantoprazole Sodium (Pantoprazole 40 Mg Tablet) 40 mg PO AC-BRKFST [facility] Last Admin: 08/02/22 08:14 Dose: 40 mg Pioglitazone HCl (Pioglitazone 15 Mg Tab) 15 mg PO DAILY [facility] Last Admin: 08/02/22 08:14 Dose: 15 mg Tramadol HCl (Tramadol 50 Mg Tab) 50 mg PO BID PRN PRN Reason: Pain Last Admin: 08/01/22 20:35 Dose: 50 mg PHYSICAL EXAMINATION: GENERAL: The patient is alert and oriented x4, Well developed, well nourished. Obese. HEENT: Pupils are round and equally reacting to light. EOMI. no scleral icterus. No conjunctival pallor. Normocephalic, atraumatic. No pharyngeal erythema. No thyromegaly. CARDIOVASCULAR: S1 and S2 muffled PULMONARY: diminished breath sounds bilaterally with no wheezing or rhonchi noted. ABDOMEN: soft. Nontender on exam. obese. non-distended, normoactive bowel sounds. No palpable organomegaly. MUSCULOSKELETAL: No joint swelling or deformity. EXTREMITIES: No cyanosis, clubbing, or pedal edema. Right lower extremity currently splinted postsurgical with positive cap refill less than 3 and some swelling noted able to move the toes on exam NEUROLOGICAL: Gross neurological examination did not reveal any focal deficits. Diffuse weakness SKIN: No rashes. Assessment: Acute right ankle bimalleolar fracture with gait dysfunction Status post open reduction with internal fixation of the right bimalleolar ankle fracture, postop day 1 Acute renal failure, improved Hyperkalemia, improved gait dysfunction diabetes mellitus, type II Hypertension Hyperlipidemia GI prophylaxis DVT prophylaxis Full code Plan: Recommend to continue with current medications and management with orthopedic Dr. Jerod Barber podiatry following and is postop day #1 of bimalleolar fracture reduction with internal fixation. Patient was continued on clear liquids postsurgical and will resume consistent carb diet and recommend continue monitoring Accu-Cheks before meals and at bedtime and will treat accordingly with sliding scale. Continue with pain management and recommend PT/OT therapy daily. Case management is following as well working on discharge planning is plan is for ECF for continued strength and mobility. Awaiting insurance authorization along with podiatry consultation clearance. Due to multiple complex medical issues, prognosis is guarded. Possible discharge in 24-48 hours The impression and plan of care has been dictated by Beth Kim, nurse practitioner as directed. Dr. Edgar MD I have performed a history and examination and MDM of this patient, discussed the same with the dictator, and agree with the dictator's assessment and plan as written ,documented as a scribe. Based on total visit time, I have performed more than 50% of the visit. Any additional findings or plans will be noted. Objective - Vital Signs Vital signs: Vital Signs Temp 97.9 F 08/02/22 07:00 Pulse 80 08/02/22 07:00 Resp 18 08/02/22 07:00 BP 160/79 08/02/22 07:00 Pulse Ox 99 08/02/22 07:00 FiO2 Intake & Output 08/01/22 08/02/22 08/02/22 18:59 06:59 18:59 Intake Total 900 Output Total 10 350 Balance 890 -350 Intake: IV 900 Output: Urine 350 Estimated Blood Loss 10 Other: Voiding Method External Catheter External Catheter External Catheter # Voids 1 - Labs CBC & Chem 7: 08/02/22 06:06 08/02/22 06:06 Labs: Abnormal Lab Results - Last 24 Hours (Table) 08/01/22 08/01/22 08/01/22 Range/Units 12:48 17:38 21:15 WBC (4.50-10.00) X 10*3/uL RBC (4.10-5.20) X 10*6/uL Hgb (12.0-15.0) g/dL Hct (37.2-46.3) % Immature Gran # (0.00-0.04) X 10*3/uL Neutrophils # (1.80-7.70) X 10*3/uL BUN (9.0-27.0) mg/dL BUN/Creatinine Ratio (12.00-20.00) Ratio Glucose (70-110) mg/dL POC Glucose (mg/dL) 143 H 137 H 185 H (70-110) mg/dL Calcium (8.7-10.3) mg/dL 08/02/22 08/02/22 08/02/22 Range/Units 06:06 06:06 07:04 WBC 10.25 H (4.50-10.00) X 10*3/uL RBC 3.88 L (4.10-5.20) X 10*6/uL Hgb 11.6 L (12.0-15.0) g/dL Hct 35.2 L (37.2-46.3) % Immature Gran # 0.08 H (0.00-0.04) X 10*3/uL Neutrophils # 7.72 H (1.80-7.70) X 10*3/uL BUN 28.2 H (9.0-27.0) mg/dL BUN/Creatinine Ratio 35.25 H (12.00-20.00) Ratio Glucose 156 H (70-110) mg/dL POC Glucose (mg/dL) 142 H (70-110) mg/dL Calcium 7.9 L (8.7-10.3) mg/dL
[2022-08-02 17:58] LABS: Glucose,Whole Blood 191 mg/dL (70-110)
[2022-08-02] MEDS: INSULIN ASPART (NovoLOG) 100 UNIT/ML VIAL SQ SCH ×2 (18:08→20:50)
[2022-08-02 20:24] LABS: Glucose,Whole Blood 133 mg/dL (70-110)
[2022-08-03 07:47] LABS: Glucose,Whole Blood 128 mg/dL (70-110)
[2022-08-03] MEDS: INSULIN ASPART (NovoLOG) 100 UNIT/ML VIAL SQ SCH (08:13)
[2022-08-03 08:53] VITALS: BP 172/75; PULSE 83; RESP 18; TEMP 98.6
[2022-08-03] MEDS: atenoloL 50 MG TAB PO SCH (08:58)
[2022-08-03] MEDS: PANTOPRAZOLE 40 MG TABLET PO SCH (08:58)
[2022-08-03] MEDS: NYSTATIN 100,000 UNIT/GM POWD 15 GM TOPICAL SCH (08:58)
[2022-08-03] MEDS: ATORVASTATIN 20 MG TAB PO SCH (08:58)
[2022-08-03] MEDS: ASPIRIN 81 MG PO SCH (08:58)
[2022-08-03] MEDS: PIOGLITAZONE 15 MG TAB PO SCH (08:58)
--- NOTE | 2022-08-03 09:10 | P.PN ---
Subjective Progress Note Date: 08/03/22 Principal diagnosis: Displaced right bimalleolar ankle fracture POD#2 ORIF right ankle Patient visited at bedside. Physical therapy was in the room assisting the patient to sit up in her chair. Patient states that she's doing well. Current pain is decreased compared to preoperative symptoms. Pain well controlled with medications. Denies N,V,F,C. Objective - Vital Signs Vital signs: Vital Signs Temp 98.6 F 08/03/22 07:48 Pulse 83 08/03/22 07:48 Resp 18 08/03/22 07:48 BP 172/75 08/03/22 07:48 Pulse Ox 96 08/03/22 07:48 FiO2 Intake & Output 08/02/22 08/03/22 08/03/22 18:59 06:59 18:59 Output Total 400 Balance -400 Output: Urine 400 Other: Voiding Method External Catheter External Catheter # Voids 4 - Exam Patient sitting in a chair. She is awake, alert, oriented 3. No apparent distress. Below-knee splint on the right leg. Splint is intact, clean and dry. Capillary refill time is intact to all digits on the right foot. Patient admits to heavy light touch sensation throughout all her toes. - Labs CBC & Chem 7: 08/02/22 06:06 08/02/22 06:06 Labs: Abnormal Lab Results - Last 24 Hours (Table) 08/02/22 08/02/22 08/02/22 Range/Units 06:06 06:06 06:06 WBC 10.25 H (4.50-10.00) X 10*3/uL RBC 3.88 L (4.10-5.20) X 10*6/uL Hgb 11.6 L (12.0-15.0) g/dL Hct 35.2 L (37.2-46.3) % Immature Gran # 0.08 H (0.00-0.04) X 10*3/uL Neutrophils # 7.72 H (1.80-7.70) X 10*3/uL BUN 28.2 H (9.0-27.0) mg/dL BUN/Creatinine Ratio 35.25 H (12.00-20.00) Ratio Glucose 156 H (70-110) mg/dL POC Glucose (mg/dL) (70-110) mg/dL Hemoglobin A1c 6.4 H (0.0-6.0) % Calcium 7.9 L (8.7-10.3) mg/dL 08/02/22 08/02/22 08/02/22 Range/Units 12:25 17:57 20:21 WBC (4.50-10.00) X 10*3/uL RBC (4.10-5.20) X 10*6/uL Hgb (12.0-15.0) g/dL Hct (37.2-46.3) % Immature Gran # (0.00-0.04) X 10*3/uL Neutrophils # (1.80-7.70) X 10*3/uL BUN (9.0-27.0) mg/dL BUN/Creatinine Ratio (12.00-20.00) Ratio Glucose (70-110) mg/dL POC Glucose (mg/dL) 140 H 191 H 133 H (70-110) mg/dL Hemoglobin A1c (0.0-6.0) % Calcium (8.7-10.3) mg/dL 08/03/22 Range/Units 07:45 WBC (4.50-10.00) X 10*3/uL RBC (4.10-5.20) X 10*6/uL Hgb (12.0-15.0) g/dL Hct (37.2-46.3) % Immature Gran # (0.00-0.04) X 10*3/uL Neutrophils # (1.80-7.70) X 10*3/uL BUN (9.0-27.0) mg/dL BUN/Creatinine Ratio (12.00-20.00) Ratio Glucose (70-110) mg/dL POC Glucose (mg/dL) 128 H (70-110) mg/dL Hemoglobin A1c (0.0-6.0) % Calcium (8.7-10.3) mg/dL Assessment and Plan Assessment: Displaced right bimalleolar ankle fracture status post open reduction with internal fixation (1) Bimalleolar ankle fracture Current Visit: Yes Status: Acute Code(s): S82.843A - DISPLACED BIMALLEOLAR FRACTURE OF UNSP LOWER LEG, INIT SNOMED Code(s): 349344472 Plan: Patient plan for discharge to rehab facility. Orders provided for discharge regarding care of the right lower extremity. Patient to follow up with Dr. Barber in 10 days
[2022-08-03] MEDS ORDERED: amLODIPine 5 MG TAB PO STA (10:04)
--- NOTE | 2022-08-03 10:08 | P.DS ---
Providers Date of admission: 07/30/22 19:31 Expected date of discharge: 08/03/22 Attending physician: Noel Bland Consults: 07/30/22 19:31 Consult Physician Urgent Consulting Provider: Lloyd Duron Consult Reason/Comments: Bimalleolar ankle fracture Do you want consulting provider notified?: Yes Primary care physician: Juliana Larsen Hospital Course: Final diagnosis Acute right ankle bimalleolar fracture with gait dysfunction Status post open reduction with internal fixation of the right bimalleolar ankle fracture, postop day 2 Acute renal failure, improved Hyperkalemia, improved gait dysfunction diabetes mellitus, type II Hypertension Hyperlipidemia GI prophylaxis DVT prophylaxis Full code Discharge disposition Patient is being discharged in a stable condition with guarded prognosis to [facility]. Patient will follow-up with Dr. Larsen in the outpatient setting upon discharge. Patient is to follow-up with surgeon Dr. Barber as scheduled. Total time taken is greater than 35 minutes. Hospital course This is a 77-year-old female who was recently admitted with bimalleolar right ankle fracture underwent open reduction with internal fixation with Dr. Barber and is being closely monitored. Patient initially was at [facility] and sent home although could not walk or handle the pain and was brought here by family for further evaluation found to have some displacement and underwent her total intervention. Patient is a diabetic recommend continue with consistent carb diet and monitoring Accu-Cheks before meals and at bedtime. Oral diabetic agents have been resumed and if blood sugars become elevated recommend sliding scale. Patient sugars have been well controlled here. Patient has been cleared by surgery for discharge to [facility] today. Currently no reports of chest pain, shortness of breath, or palpitations. Patient is afebrile. No reports of nausea or vomiting and patient is tolerating diet. Patient will be going to [facility] today. Guarded prognosis Physical exam: Gen: This is a 77-year-old female who is awake, alert and oriented 3, well- developed, well-nourished, obese. HEENT: Head is atraumatic, normocephalic. Pupils equal, round. Sclerae is anicteric. NECK: Supple. No JVD. No lymphadenopathy. No thyromegaly. LUNGS: Clear to auscultation. No wheezes or rhonchi. No intercostal retractions. HEART: Regular rate and rhythm. No murmur. ABDOMEN: Soft. Bowel sounds are present. No masses. No tenderness. EXTREMITIES: No pedal edema. No calf tenderness. Right lower extremity noted with casting post surgical NEUROLOGICAL: Patient is awake, alert and oriented x3. Cranial nerves 2 through 12 are grossly intact. diffusely weak Please refer to medication reconciliation sheet for a list of medications. The impression and plan of care has been dictated by Beth Kim, Nurse Practitioner as directed. Dr. Margoth MD I have performed a history and examination and MDM of this patient, discussed the same with the dictator, and agree with the dictator's assessment and plan as written ,documented as a scribe. Based on total visit time, I have performed more than 50% of the visit. Patient Condition at Discharge: Stable Plan - Discharge Summary New Discharge Prescriptions: New Nystatin 100,000 Unit/gm Powd [Mycostatin Powder] 1 applic TOPICAL TID each Acetaminophen Tab [Tylenol] 650 mg PO Q6HR PRN tab PRN Reason: Fever And/ Or Pain amLODIPine [Norvasc] 5 mg PO DAILY #30 tab Calcium Carbonate [Tums] 500 mg PO TID PRN tab PRN Reason: Heartburn Continue metFORMIN HCL [Glucophage] 1,000 mg PO BID Omeprazole [PriLOSEC] 20 mg PO DAILY Pateros-3 Fatty Acids/Fish Oil [Fish Oil 1,000 mg Softgel] 1 tab PO DAILY atenoloL [Tenormin] 50 mg PO DAILY Aspirin [Adult Low Dose Aspirin EC] 81 mg PO DAILY Simvastatin [Zocor] 40 mg PO DAILY Pioglitazone [Actos] 15 mg PO DAILY Alendronate Sodium [Fosamax] 70 mg PO TU traMADol HCL 50 mg PO Q6H PRN #6 tab PRN Reason: Pain Discharge Medication List Aspirin [Adult Low Dose Aspirin EC] 81 mg PO DAILY 06/15/16 [History] Pateros-3 Fatty Acids/Fish Oil [Fish Oil 1,000 mg Softgel] 1 tab PO DAILY 06/15/16 [History] Omeprazole [PriLOSEC] 20 mg PO DAILY 06/15/16 [History] Simvastatin [Zocor] 40 mg PO DAILY 06/15/16 [History] atenoloL [Tenormin] 50 mg PO DAILY 06/15/16 [History] metFORMIN HCL [Glucophage] 1,000 mg PO BID 06/15/16 [History] Alendronate Sodium [Fosamax] 70 mg PO TU 07/30/22 [History] Pioglitazone [Actos] 15 mg PO DAILY 07/30/22 [History] Acetaminophen Tab [Tylenol] 650 mg PO Q6HR PRN tab 08/03/22 [Rx] Calcium Carbonate [Tums] 500 mg PO TID PRN tab 08/03/22 [Rx] Nystatin 100,000 Unit/gm Powd [Mycostatin Powder] 1 applic TOPICAL TID each 08/03/22 [Rx] amLODIPine [Norvasc] 5 mg PO DAILY #30 tab 08/03/22 [Rx] traMADol HCL 50 mg PO Q6H PRN #6 tab 08/03/22 [Rx] Follow up Appointment(s)/Referral(s): Jerod Barber DPM [Doctor of Osteopathic Medicine] - 10 Days Juliana Larsen MD [Primary Care Provider] - Patient Instructions/Handouts: *Surgery [facility] - ([facility]) Discharge Instructins Foot Surgery Activity/Diet/Wound Care/Special Instructions: Splint to stay clean, dry, and intact. Do not remove Nonweightbearing right lower extremity May sit in chair with assistance Keep right leg elevated when resting Follow-up with Dr. Barber in 10 days Patient is going to [facility] Activity as tolerated Continue consistent carb diet Continue to monitor Accu-Cheks and did resume oral diabetic agents Continue with PT/OT therapy Follow-up primary care provider on discharge Follow-up podiatry orthopedic Dr. Barber as discussed Discharge Disposition: TRANSFER TO SNF/ECF
[2022-08-03 11:26] LABS: Glucose,Whole Blood 188 mg/dL (70-110)
== END 2022-08-03 12:17 | DRG 493 ==
LOC: EC 14:45 → 5NMEDONC 19:31
PROVIDERS: ADMIT Internal Medicine; ATTEND Internal Medicine
PROC: 0QSG04Z Reposition Right Tibia with Internal Fixation Device, Open Approach (ICD-10-PCS; principal; 2022-08-01 11:30)
PROC: 0QSJ04Z Reposition Right Fibula with Internal Fixation Device, Open Approach (ICD-10-PCS; principal; 2022-08-01 11:30)
DX: S82.851A Displaced trimalleolar fracture of right lower leg, initial encounter for closed fracture (principal); N17.9 Acute kidney failure, unspecified; E11.9 Type 2 diabetes mellitus without complications; E78.5 Hyperlipidemia, unspecified; E87.5 Hyperkalemia; Z79.84 Long term (current) use of oral hypoglycemic drugs; Z79.82 Long term (current) use of aspirin; Z79.83 Long term (current) use of bisphosphonates; Z79.899 Other long term (current) drug therapy; R26.9 Unspecified abnormalities of gait and mobility; I10 Essential (primary) hypertension; K21.9 Gastro-esophageal reflux disease without esophagitis
CPT/HCPCS: 36415; 64445; 64447; 76942; 80048; 80053; 83036; 83735; 84443; 85025; 99285